=== PATIENT | female | born 1990 ===

== ENCOUNTER → 2018-03-27 | Outpatient (CLI) | payer OTHER ==
[2018-03-27 12:19] LABS: Follicle Stimulating Hormone 8.06 IU/L (SEE BELOW); Prolactin 7.85 ng/mL (2.8-29.2)
== END | disposition home or self-care (01) ==
LOC: LAB 11:30
PROVIDERS: ATTEND Specialist
DX: E28.2 Polycystic ovarian syndrome (principal)
CPT/HCPCS: 36415; 83001; 83002; 84146; 84403; 84443

== ENCOUNTER → 2018-05-16 | Outpatient (CLI) | payer OTHER | END | disposition home or self-care (01) | LOC: LAB 15:00 | PROVIDERS: ATTEND Specialist | DX: R87.611 Atypical squamous cells cannot exclude high grade squamous intraepithelial lesion on cytologic smear of cervix (ASC-H) (principal) ==